=== PATIENT | female | born 1945 | race Caucasian/White ===

== ENCOUNTER → 2016-10-13 11:26 | Outpatient (CLI) | payer OTHER | END | disposition home or self-care (01) | LOC: D.US 11:00 | DX: N64.4 Mastodynia (principal) ==

== ENCOUNTER 2016-11-03 17:24 | Emergency (ER) | payer MEDICARE | END 2016-11-03 22:03 | disposition left against medical advice (07) | LOC: D.ER 17:24 | DX: R20.0 Anesthesia of skin (principal) ==

== ENCOUNTER → 2019-03-15 08:59 | Outpatient (CLI) | payer MEDICARE ==
--- NOTE | 2019-03-19 09:50 | ST ---
PATIENT:JORDAN BARON MEDICAL RECORD: [id number] SEX: F LOCATION:[facility] ORDER #: ADMISSION DATE: 03/15/19 AGE OF PATIENT: 74 REFERRING PHYSICIAN: INTERPRETING PHYSICIAN: EZEQUIEL GAVIRIA MD DATE OF SERVICE: 03/15/2019 NUCLEAR STRESS TEST INDICATION: Shortness of breath, hypertension, COPD, abnormal cardiac CT. She was exercised on standard Lexiscan protocol with 31 mCi of sestamibi injected at peak stress 11 mCi used previously for rest images. FINDINGS: Gated SPECT reveals preserved ejection fraction at 68% with good wall motion and thickening and brightening throughout all segments. SPECT imaging Cardiolite was used as myocardial fusion agent. There is homogeneous uptake throughout all segments at rest and stress with no evidence of inducible ischemia or previous infarction. OVERALL IMPRESSION: 1. This is a normal nuclear stress test with no evidence of inducible ischemia or previous infarction. 2. Gated SPECT reveals a preserved ejection fraction at 68%. In this patient with ongoing symptomatology, the current scan does not suggest the presence of hemodynamically significant coronary artery disease. Evaluate noncardiac etiology of chest pain. TRANSINT:[id number] Voice Confirmation ID: [id number] DOCUMENT ID: [id number] EZEQUIEL GAVIRIA MD at 0950 CC: REAGAN SMITH [id number] DICTATION DATE: 03/16/19 1133 WOOD TYPE FINISHER: 03/16/19 2343 DEP CLI 03/15/19 [facility] [address] [place] [address]
== END | disposition home or self-care (01) ==
LOC: D.HCCARDIO 03-12 12:00
PROVIDERS: ATTEND Internal Medicine Interventional Cardiology
DX: I25.10 Atherosclerotic heart disease of native coronary artery without angina pectoris (principal)